=== PATIENT | female | born 1935 | race Caucasian/White ===

== ENCOUNTER 2023-02-06 12:09 | Emergency (ER) | payer MEDICARE, OTHER ==
[2023-02-06] MEDS ORDERED: Take Home: Doxycycline 100 MG Cap, 4 Cap Pack PO ONE (13:05)
[2023-02-06 13:11] VITALS: BP 152/75; PULSE 75
== END 2023-02-06 13:26 | disposition home or self-care (01) ==
LOC: DL.ED 12:09
DX: J18.9 Pneumonia, unspecified organism (principal); J44.9 Chronic obstructive pulmonary disease, unspecified; Z88.5 Allergy status to narcotic agent; Z91.040 Latex allergy status; Z79.51 Long term (current) use of inhaled steroids; Z79.82 Long term (current) use of aspirin
CPT/HCPCS: 99283; A9270; 99284